=== PATIENT | female | born 2000 | race Caucasian/White ===

== ENCOUNTER 2023-12-10 20:50 | Emergency (ER) | payer OTHER ==
[~2023-12-10] VITALS: Ht 170.2 cm; Wt 67.3 kg
[2023-12-10 22:30] VITALS: TEMP 97.8
[2023-12-10 23:35] VITALS: BP 122/76; PULSE 18
== END 2023-12-10 23:35 | disposition home or self-care (01) ==
LOC: COL.ER 20:50
DX: S01.111A Laceration without foreign body of right eyelid and periocular area, initial encounter (principal); W20.8XXA Other cause of strike by thrown, projected or falling object, initial encounter; Y92.39 Other specified sports and athletic area as the place of occurrence of the external cause